=== PATIENT | female | born 1975 | race American Indian/Alaskan Native ===

== ENCOUNTER 2022-04-20 05:41 | Day surgery (SDC) | payer BC, OTHER ==
[~2022-04-20 05:41] MED LIST: Sodium Chloride 0.9% 10 ML Syringe FLUSH SCH
[2022-04-20] MEDS ORDERED: Midazolam 1 MG/ML 2 ML SDV IV ONE ×3 (05:42→06:38)
[2022-04-20] MEDS ORDERED: fentaNYL 100 MCG/2 ML SDV IV ONE ×3 (05:42→06:36)
[2022-04-20] MEDS ORDERED: Dextrose 5%-0.45% NaCl 1,000 ML IV SCH (06:00)
[2022-04-20] MEDS ORDERED: Sodium Chloride 0.9% 10 ML Syringe FLUSH PRN (06:00)
[2022-04-20] MEDS ORDERED: Midazolam 1 MG/ML 2 ML SDV ONE (06:18)
[2022-04-20] MEDS ORDERED: fentaNYL 100 MCG/2 ML SDV ONE (06:19)
== END 2022-04-20 08:32 | disposition home or self-care (01) ==
LOC: DL.ENDO 05:41
PROVIDERS: ATTEND Internal Medicine Gastroenterology
DX: K31.89 Other diseases of stomach and duodenum (principal); K22.89 Other specified disease of esophagus; E66.09 Other obesity due to excess calories; E78.5 Hyperlipidemia, unspecified; K21.9 Gastro-esophageal reflux disease without esophagitis; F17.210 Nicotine dependence, cigarettes, uncomplicated; Z98.890 Other specified postprocedural states; Z88.5 Allergy status to narcotic agent; Z90.710 Acquired absence of both cervix and uterus; Z68.35 Body mass index [BMI] 35.0-35.9, adult
CPT/HCPCS: 43239; 87077; J2250; J3010; J7042